=== PATIENT | male | born 1975 | race Caucasian/White ===

== ENCOUNTER 2018-08-20 13:05 | Emergency (ER) | payer MEDICARE, MEDICAID ==
[2018-08-20 13:21] VITALS: TEMP 95.8
[2018-08-20] MEDS ORDERED: TETRACAINE HCL 0.5% OPHTH SOL 1 DROP ONE (13:25)
[2018-08-20] MEDS ORDERED: SODIUM CHLORIDE 0.9% 500ML 500 ML ONE (13:26)
--- NOTE | 2018-08-20 13:37 | ED.PDOC ---
History of Present Illness - General Chief Complaint: Eye Problems Stated Complaint: left eye pain,poss FB Time Seen by Provider: 08/20/18 13:35 Source: patient Exam Limitations: no limitations - History of Present Illness Initial Comments: Patient presents with left eye pain. He said that yesterday he was working under the car and some dirt fell into his eye. Since then it has been painful. He woke up this morning and it was worse. He has had a lot of tears. The pain is on the orbit with no radiation, constant, no radiation. No other complaints. Timing/Duration: 24 hours Severity: moderate Improving Factors: nothing Worsening Factors: nothing Associated Symptoms: denies symptoms Allergies/Adverse Reactions: Allergies NO KNOWN ALLERGY Allergy (Verified 08/20/18 13:21) Home Medications: Ambulatory Orders Ascorbic Acid [Vitamin C] 1,000 mg PO DAILY 08/20/18 Aspirin [Aspirin Adult Low Dose] 81 mg PO DAILY 08/20/18 Clonazepam 1 mg PO BID 08/20/18 Erythromycin (Ophth) [Erythromycin] 5 mg OPHTH 5XD 7 Days #1 oin 08/20/18 Hydrocodone-Acetaminophen [Lorcet Plus 7.5-325 mg] 1 tab PO BID 08/20/18 Hydroxyzine Pamoate [Vistaril] 50 mg PO TID 08/20/18 Lamotrigine [Lamictal] 50 mg PO BEDTIME 08/20/18 Lisinopril 10 mg PO BID 08/20/18 Metoprolol Tartrate 100 mg PO BID 08/20/18 Oxcarbazepine [Trileptal] 600 mg PO BID 08/20/18 Prazosin HCl 5 mg PO DAILY 08/20/18 Quetiapine Fumarate [Seroquel] 1,000 mg PO DAILY 08/20/18 Venlafaxine HCl [Effexor Tab] 75 mg PO TID 08/20/18 Warfarin Sodium 10 mg PO DAILY 08/20/18 Zolpidem Tartrate 10 mg PO BEDTIME 08/20/18 Review of Systems - Review of Systems Constitutional: States: no symptoms reported EENTM: States: see HPI Respiratory: States: no symptoms reported Cardiology: States: no symptoms reported Gastrointestinal/Abdominal: States: no symptoms reported Genitourinary: States: no symptoms reported Musculoskeletal: States: no symptoms reported Skin: States: no symptoms reported Neurological: States: no symptoms reported Endocrine: States: no symptoms reported Hematologic/Lymphatic: States: no symptoms reported Past Medical History (General) - Patient Medical History Hx Stroke: No Hx Cardiac Disorders: Yes Hx Congestive Heart Failure: No Hx Hypertension: Yes Hx Diabetes: No Surgical History: pacemaker - Vaccination History Hx Tetanus, Diphtheria Vaccination: Yes - 2014 Hx Influenza Vaccination: No - Social History Hx Tobacco Use: Yes Family Medical History - Family History Father Family History: Unknown Living Status: Unknown Physical Exam - Physical Exam General Appearance: Alert Eye Exam: left other - Scleral abrasion inferiorly, approximately 2 cm Ears, Nose, Throat: hearing grossly normal, normal ENT inspection Neck: non-tender, full range of motion, supple Respiratory: lungs clear, normal breath sounds Cardiovascular/Chest: normal peripheral pulses, regular rate, rhythm Progress - Progress Progress: 08/20/18 14:26 Wood's lamp exam showed an inferior scleral abrasion. Area was irrigated and RX for erythromycin cream given. Departure - Departure Clinical Impression: Abrasion of sclera of left eye Disposition: Discharge to Home or Self Care Condition: Good Departure Forms: ED Discharge - Pt. Copy, Patient Portal Self Enrollment Instructions: DI for Eye Pain Diet: resume usual diet Activity: increase activity as tolerated Prescriptions: Erythromycin (Ophth) [Erythromycin] 5 mg OPHTH 5XD 7 Days #1 oin Home Medications: Ambulatory Orders Ascorbic Acid [Vitamin C] 1,000 mg PO DAILY 08/20/18 Aspirin [Aspirin Adult Low Dose] 81 mg PO DAILY 08/20/18 Clonazepam 1 mg PO BID 08/20/18 Erythromycin (Ophth) [Erythromycin] 5 mg OPHTH 5XD 7 Days #1 oin 08/20/18 Hydrocodone-Acetaminophen [Lorcet Plus 7.5-325 mg] 1 tab PO BID 08/20/18 Hydroxyzine Pamoate [Vistaril] 50 mg PO TID 08/20/18 Lamotrigine [Lamictal] 50 mg PO BEDTIME 08/20/18 Lisinopril 10 mg PO BID 08/20/18 Metoprolol Tartrate 100 mg PO BID 08/20/18 Oxcarbazepine [Trileptal] 600 mg PO BID 08/20/18 Prazosin HCl 5 mg PO DAILY 08/20/18 Quetiapine Fumarate [Seroquel] 1,000 mg PO DAILY 08/20/18 Venlafaxine HCl [Effexor Tab] 75 mg PO TID 08/20/18 Warfarin Sodium 10 mg PO DAILY 08/20/18 Zolpidem Tartrate 10 mg PO BEDTIME 08/20/18 Additional Instructions: Apply the prescription medication as directed. See an gas producer in 2-3 days for a recheck of the eye. Return to the E.R. for increasing drainage, pus, fever , increasing pain, or loss of vision.
[2018-08-20] MEDS: ALPRAZolam 0.25 MG TAB PO ONE (13:43)
[2018-08-20 14:57] VITALS: BP 104/78; O2SAT 97
== END 2018-08-20 14:45 | disposition home or self-care (01) ==
LOC: ER 13:05
DX: S05.02XA Injury of conjunctiva and corneal abrasion without foreign body, left eye, initial encounter (principal); I10 Essential (primary) hypertension; Z95.0 Presence of cardiac pacemaker; Z79.899 Other long term (current) drug therapy; X58.XXXA Exposure to other specified factors, initial encounter; Y93.89 Activity, other specified; Y92.810 Car as the place of occurrence of the external cause